=== PATIENT | male | born 1985 | race Caucasian/White ===

== ENCOUNTER → 2023-02-08 09:54 | Outpatient (BNVA) | payer OTHER, SELFPAY | PROVIDERS: Referring Provider Nurse Practitioner; Visit Provider Specialist | DX: S49.91XA Unspecified injury of right shoulder and upper arm, initial encounter; V89.2XXA Person injured in unspecified motor-vehicle accident, traffic, initial encounter | CPT/HCPCS: 99204 ==

== ENCOUNTER → 2023-02-08 10:02 | Outpatient (BNVA) | payer OTHER, SELFPAY | PROVIDERS: Referring Provider Nurse Practitioner; Visit Provider Specialist | DX: M25.511 Pain in right shoulder (principal); S49.91XA Unspecified injury of right shoulder and upper arm, initial encounter; V89.2XXA Person injured in unspecified motor-vehicle accident, traffic, initial encounter | CPT/HCPCS: 73030 ==

== ENCOUNTER 2023-03-07 14:47 | Outpatient (CLI) | payer OTHER, SELFPAY ==
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
== END 2023-03-07 14:48 ==
LOC: RAD 14:58
PROVIDERS: PCP Nurse Practitioner; Visit Provider Specialist
DX: S49.91XA Unspecified injury of right shoulder and upper arm, initial encounter (principal); V89.2XXA Person injured in unspecified motor-vehicle accident, traffic, initial encounter
CPT/HCPCS: 73221; 99204